=== PATIENT | female | born 1930 | race Caucasian/White ===

== ENCOUNTER 2019-09-14 04:15 | Inpatient (IN) ==
--- NOTE | 2019-09-14 04:39 | Emergency Department Note ---
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 No other significant injuries. No loss of consciousness. She denies rib pain. Denies chest pain or shortness of breath. The. She called her family at 10 PM, but then they did not respond to about 2 this morning. She comes in by private vehicle. Was able to bear weight only slightly, is complaining mostly of right hip pain. History of myeloid leukemia, apparently in remission, she lives by herself. Denies smoking or alcohol use. Fell onto the concrete, landing on the right side MD complaint: hip injury - Related Data Home Medications Medication Instructions Recorded Confirmed cholecalciferol (vitamin D3) 25 1,000 unit PO QDAY cap 02/08/15 09/14/19 mcg (1,000 unit) capsule hydralazine 10 mg tablet 10 mg PO BID tab 04/14/19 09/14/19 Aspirin [Adult Low Dose Aspirin EC] 81 mg PO DAILY 09/14/19 09/14/19 Vit A,C & E/Lutein/Minerals 1 tab PO DAILY 09/14/19 09/14/19 [Ocuvite] Previous Rx's Medication Instructions Recorded furosemide 40 mg tablet 40 mg PO QDAY #1 tab 10/30/17 metoprolol succinate 100 mg 100 mg PO BID #60 tab 01/30/18 tablet,extended release 24 hr omeprazole 20 mg capsule,delayed 20 mg PO QDAY #90 cap 08/13/19 release enalapril maleate 10 mg tablet 10 mg PO QDAY 90 Days #90 tab 08/20/19 atorvastatin 10 mg tablet 10 mg PO QPM 90 Days #90 tab 08/30/19 Allergies Allergy/AdvReac Type Severity Reaction Status Date / Time No Known Drug Allergies Allergy Verified 08/12/19 07:54 Review of Systems All systems ED: reviewed and negative except as stated. Constitutional: Denies: fever, chills ENT ED: Denies: throat pain Cardiovascular: Denies: chest pain, palpitations, dyspnea on exertion Respiratory: Denies: shortness of breath Past Medical History - Past Medical History PMFSH Narrative: Past Surgical History History of cataract surgery (Chronic) History of appendectomy (Chronic) Cardiac Assessment/History Capillary Refill < 3 Seconds Respiratory Assessment/History Respiratory Pattern/Effort Normal Breath Sounds Clear,Throughout All Garcia HEENT Assessment/History Pupil Reaction Brisk Pupil Size 2 Pupil [place] PERRL Gastrointestinal Assessment/History Abdomen Description Soft,Non-Tender Skin Assessment/History Skin Color/Temp Warm,Dry,[place] Neuro Assessment/History Alert and Oriented Yes Muscle Strength (Extremity) Normal for Patient All Active Problems (Last Updated 08/05/18 @ 07:27 by Khari Ballard PA-C) Insomnia (Chronic) Atrial fibrillation (Chronic) Vitamin D deficiency (Chronic) History of cataract surgery (Chronic) History of appendectomy (Chronic) Osteoporosis (Chronic) 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) Macular degeneration (Chronic) Chronic kidney disease (Chronic) Hypertension, essential (Chronic) Hyperlipidemia (Chronic) Gastroesophageal reflux (Chronic) Source: nursing notes reviewed Medical history: Reports: atrial fibrillation, GERD, other (history of myeloid leukemia) Surgical history ED: Reports: non-contributory Family history: Reports: no significant family history - Social History smoking status: Never smoker Alcohol use: Reports: None Drug use: Reports: none Physical Exam Limitations: no limitations General appearance: alert, in no apparent distress Head: atraumatic, normocephalic, normal inspection Eye: Present: normal appearance, PERRL, EOMI, visual garcia intact ENT: Present: normal exam, normal oropharynx, mucous membranes moist, TM's normal bilaterally Neck: Present: normal inspection, full ROM, trachea midline. Absent: tenderness, meningismus Chest: Present: normal inspection, symmetric chest wall rise Respiratory: Present: normal lung sounds bilaterally. Absent: respiratory distress, rales/crackles Cardiovascular: Present: regular rate, normal rhythm Abdominal: Present: soft. Absent: distention, tenderness Extremities: Present: other (tender of the right trochanter, leg, not shortened cannot externally rotated). Absent: full ROM, pedal edema, pretibial edema, joint swelling, calf tenderness Back: Present: normal inspection. Absent: CVA tenderness (R), CVA tenderness (L), vertebral tenderness Neurological: Present: alert, oriented X3, CN II-XII intact, reflexes normal. Absent: motor sensory deficit Psychiatric: Present: normal affect Skin: Present: warm, dry, normal color Course - Reevaluation(s) Reevaluation #1: X-ray showing what was suspicious of a right sided femoral neck fracture. Somewhat impacted so a little bit difficult to tell and thus a CT scan was done and this showed definitely a fracture which was impacted in the femoral neck. I spoke with Dr. Ayala who stated that he had a few cases this morning but then he would be over later in the morning to look at her. He preferred to have the hospitalist admit the patient. She does have atrial fibrillation, ST segment depression which is new but she is not complaining of any chest pain and her troponin was negative. She is on aspirin only for blood thinner. A little bit hypertensive in the department, however she has not taken any of her morning medications. Discussed hospital admission with Dr. Ayala who would be happy to consult on the patient and recommended hospital admission by Dr. Moeller. Discussed with Dr. Moeller. Dr. Ayala will be in after seeing 2cases at [place]., I.e. later this morning Vital Signs Temperature 97.1 F 09/14/19 04:17 Pulse Rate 90 09/14/19 04:17 Respiratory Rate 16 09/14/19 04:17 Blood Pressure 182/93 09/14/19 04:17 Pulse Oximetry (%) 97 09/14/19 04:17 Temperature 97.1 F 09/14/19 04:17 Pulse Rate 88 09/14/19 08:00 Respiratory Rate 21 09/14/19 08:00 Blood Pressure 141/79 09/14/19 08:00 Pulse Oximetry (%) 97 09/14/19 08:00 Extremity Injury, Lower - MDM Narrative Medical decision making narrative: Final diagnosis is right-sided femoral neck fracture, minimally displaced, mildly impacted - Lab Data Lab results reviewed: Yes I reviewed the patient's lab results. Result diagrams: 09/14/19 05:05 09/14/19 05:05 Lab Results 09/14/19 09/14/19 09/14/19 Range/Units 05:05 05:05 05:12 WBC 8.0 (4.50-11.00) K/mcL RBC 3.72 (3.59-5.38) M/mcL Hgb 11.4 (11.2-15.7) g/dL Hct 33.3 L (34.1-44.9) % MCV 89.5 (80.0-100.0) fL MCH 30.6 (26.0-34.0) pg MCHC 34.2 (31.0-36.0) g/dL RDW 14.0 (11.5-14.5) % Plt Count 183 (140-440) K/mcL MPV 9.5 (7.4-10.4) fL Total Counted 100 Seg Neutrophils % 82 H (38-78) % Band Neutrophils % 1 (0-10) % Lymphocytes % 10 L (15-49) % Monocytes % (Manual) 6 (1-12) % Eosinophils % (Manual) 1 (0-7) % Platelet Estimate Normal (NORMAL) RBC Morphology Normal (NORMAL) ESR 29 H (0-20) mm/hr Sodium 137 (133-145) mmol/L Potassium 3.6 (3.3-5.1) mmol/L Chloride 100 (96-108) mmol/L Carbon Dioxide 21 L (22-30) mmol/L Anion Gap 16.0 (8-16) BUN 23 (8-23) mg/dl Creatinine 1.1 (0.6-1.1) mg/dl GFR Calculation 45 Glucose 169 H (70-105) mg/dL Calcium 9.5 (8.6-10.4) mg/dl Total Bilirubin 1.0 (0.0-1.0) mg/dL AST 33 (0-37) U/l ALT 21 (0-40) U/l Alkaline Phosphatase 106 (39-117) U/L Troponin T < 0.01 (0-0.03) ng/ml Total Protein 6.8 (5.9-8.4) gm/dL Albumin 3.8 (3.2-5.2) gm/dL Globulin 3.0 (2.2-3.7) gm/dL Albumin/Globulin Ratio 1.3 (1.0-2.3) - Radiology Data Radiology results reviewed: Yes I reviewed the patient's radiology results. Disposition Pt seen by HEALTHCARE TECHNICIAN/PA only: No Clinical Impression: Fracture of hip Disposition: Xfer As Outpt/Obs ([facility]) Condition: Good Referrals: Khari Ballard PA-C [Primary Care Provider] -
[2019-09-14] MEDS ORDERED: RACEPINEPHRINE 0.5 ML AMPUL.NEB ONE (04:48)
--- NOTE | 2019-09-14 05:38 | XRay Report ---
CLINICAL INFORMATION: fall COMPARISON: 08/12/2019 FINDINGS: Moderate cardiomegaly is unchanged. Mediastinum and pulmonary vessels are normal. The lungs are clear. No effusions. Bones and soft tissues normal IMPRESSION: Moderate stable cardiomegaly - no acute cardiopulmonary disease or posttraumatic change Interpreted and Authenticated by: Abdulaziz Mejia 09/14/19
[2019-09-14 05:46] LABS: Hematocrit 33.3 % (34.1-44.9); Hemoglobin 11.4 g/dL (11.2-15.7); Mean Cell Volume 89.5 fL (80.0-100.0); Mean Corpuscular HGB Conc 34.2 g/dL (31.0-36.0); Mean Platelet Volume 9.5 fL (7.4-10.4); Platelet Count 183 K/mcL (140-440); RBC 3.72 M/mcL (3.59-5.38)
--- NOTE | 2019-09-14 05:50 | Cat Scan Report ---
CLINICAL INFORMATION: Trauma COMPARISON: None. TECHNIQUE: 0.625 mm helical slices were obtained from the mid L4 through the subtrochanteric regions. Following reconstruction, 2.5 mm sagittal, coronal and axial reformations were processed. The exam was reviewed in bone and soft tissue windows. The exam was performed using radiation dose optimization techniques including, but not limited to, automated exposure control, adjustment of mA and/or kV according to patient size and use of iterative reconstruction technique. FINDINGS: Bone windows show an acute, mildly impacted subcapital fracture of the right hip. The femoral neck is displaced less than 5 mm anteriorly. Minimal degenerative change seen in both SI and hip joints. 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 At L4-5 moderate broad disc protrusion results in mild central canal and moderate left IV foraminal narrowing. The multiple diverticuli within the sigmoid colon. The visualized small and large bowel are, otherwise, normal. Urinary bladder is unremarkable. Uterus is anteflexed and normal size: 5.5 x 2 cm. IMPRESSION: 1. Acute mildly impacted, minimally displaced subcapital fracture - right hip. 2. 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 3. Sigmoid diverticulosis Interpreted and Authenticated by: Abdulaziz Mejia 09/14/19
--- NOTE | 2019-09-14 05:51 | XRay Report ---
CLINICAL INFORMATION: fall COMPARISON: None. FINDINGS: The right femoral neck is foreshortened - suspect subcapital fracture. No other osseous abnormality. There is mild degenerative change in both SI and hip joints. Soft tissues normal IMPRESSION: Probable subcapital fracture right hip - follow-up CT will be performed Interpreted and Authenticated by: Abdulaziz Mejia 09/14/19
[2019-09-14 06:09] LABS: ALT/SGPT 21 U/l (0-40); AST/SGOT 33 U/l (0-37); Albumin 3.8 gm/dL (3.2-5.2); Albumin/Globulin Ratio 1.3 (1.0-2.3); Alkaline Phosphatase 106 U/L (39-117); Blood Urea Nitrogen 23 mg/dl (8-23); Calcium 9.5 mg/dl (8.6-10.4); Carbon Dioxide 21 mmol/L (22-30); Chloride 100 mmol/L (96-108); Glomerular Filtration Rate 45; Glucose 169 mg/dL (70-105)
[2019-09-14 06:27] LABS: Band Neutrophils % 1 % (0-10); Eosinophils % (Manual) 1 % (0-7); Lymphocytes % 10 % (15-49); Monocytes % (Manual) 6 % (1-12); Platelet Estimate NORMAL (NORMAL); RBC Morphology NORMAL (NORMAL); Segmented Neutrophils % 82 % (38-78)
[2019-09-14 06:44] LABS: Erythrocyte Sedimentation Rate 29 mm/hr (0-20)
[2019-09-14] MEDS ORDERED: CARVEDILOL 3.125 MG TABLET PO ONE (06:48)
[2019-09-14] MEDS ORDERED: LACTATED RINGERS 1,000 ML IV SCH ×2 (07:00→20:15)
[2019-09-14] MEDS ORDERED: OMEPRAZOLE 20 MG CAPSULE PO SCH (07:30)
[2019-09-14 08:17] LABS: Appearance,Urine CLEAR; Bacteria,Urine 0 /hpf (0); Bilirubin,Urine NEG (NEG); Color,Urine YELLOW; Culture Indicated,Urine NO; Glucose,Urine (UA) NEGATIVE (NEG); Ketones,Urine NEG (NEG); Leukocyte Esterase,Urine NEG /uL (NEG); Mucus,Urine FEW /hpf (0); Nitrate,Urine NEG (NEG); Protein,Urine 100 mg/dL (NEG); Specific Gravity,Urine 1.017 (1.000-1.035); Urine Blood NEG mg/dL (<0.03); Urine Hyaline Cast 3 /lpf (0-2); Urine RBC 1 /hpf (0-1); Urine Squamous Epithelial Cell < 1 /hpf (0-4); Urine WBC 2 /hpf (0-4)
[2019-09-14] MEDS ORDERED: METOPROLOL SUCCINATE 50 MG TAB.XL.24H PO SCH (09:00)
[2019-09-14] MEDS ORDERED: VITAMIN D3 1,000 UNIT TABLET PO SCH (09:00)
[2019-09-14] MEDS ORDERED: hydrALAZINE 10 MG TABLET PO SCH (09:00)
[2019-09-14] MEDS ORDERED: VIT A,C & E/LUTEIN/MINERALS TABLET PO SCH (09:00)
[2019-09-14] MEDS ORDERED: LISINOPRIL 10 MG TABLET PO SCH (09:00)
--- NOTE | 2019-09-14 09:43 | XRay Report ---
CLINICAL INFORMATION: right knee pain COMPARISON: None. FINDINGS: Mild patella doreen noted. There is mild patellofemoral and tibiofemoral degenerative change. No focal osseous abnormality. There is thickening and increased density of the proximal patellar tendon with possible displacement from the inferior patellar pole IMPRESSION: Mild patella doreen Mild patellofemoral and tibiofemoral degeneration Mild thickening of the proximal patellar tendon which could indicate edema or hemorrhage. Potential proximal patellar tendon rupture. Please correlate with function and pain in this area Interpreted and Authenticated by: Abdulaziz Mejia 09/14/19
[2019-09-14] MEDS ORDERED: MAGNESIUM HYDROXIDE 30 ML ORAL.SUSP PO PRN (11:13)
[2019-09-14] MEDS ORDERED: ONDANSETRON 4 MG/2 ML VIAL IV PRN ×2 (11:13)
[2019-09-14] MEDS ORDERED: ASPIRIN 81 MG TAB.CHEW CHEWED SCH (11:13)
[2019-09-14] MEDS ORDERED: HEPARIN 5,000 UNIT/ML VIAL SQ SCH (11:13)
[2019-09-14] MEDS ORDERED: DOCUSATE SODIUM 100 MG CAPSULE PO SCH (11:13)
[2019-09-14] MEDS ORDERED: ACETAMINOPHEN 325 MG TABLET PO PRN (11:13)
[2019-09-14] MEDS: LACTATED RINGERS 1,000 ML IV SCH ×2 (11:30→21:29)
[2019-09-14] MEDS ORDERED: hydrALAZINE 20 MG/ML VIAL IV PRN (11:41)
[2019-09-14 12:04] LABS: INR 0.9 (0.9-1.1)
[2019-09-14] MEDS: DOCUSATE SODIUM 100 MG CAPSULE PO SCH (12:39)
[2019-09-14] MEDS: FAMOTIDINE 20 MG TABLET PO SCH (12:40)
--- NOTE | 2019-09-14 13:38 | Internal Med History&Physical ---
Medical - H&P: HPI Patient information: Note initiated : 09/14/19 at 1:36 pm Service Date, if different from initiated Date: [] Patient: Macrina Braxton 88 y/o F admitted on 09/14/19 for fall ground level right hip pain. Chief Complaint: [] Chief complaint: Right hip pain History of present illness: Ms. Braxton is a 88 year old F was taking bottles of water from the garage into the house climbing the 5 stairs when she lost strength in her right leg and fell on her side. She had immediate pain. She called her family but they did not respond till 2 in the morning. She was brought in and found to have right hip fracture. Patient has history of atrial fibrillation but is not on anticoagula tion. She could not afford the Eliquis so just takes aspirin. She is not had a stroke before. Patient admits to dyspnea on exertion. It takes a few minutes to catch her breath again she lives independently and is accompanied by her [id number]. Gduvhg-sz-txj says patient has had decline in her physical ability in recent years. Patient has not had coronary artery disease or stroke. She denies chest pain at rest or with activity. Review of systems: General no fevers chills weight gain weight loss Cardiovascular she does have atrial fibrillation she is on rate control with metoprolol 100 mg twice a day. She is not sure if her heart races when she walks but she does get dyspneic at times. Respiratory no cough wheezing or shortness of breath at rest. GI no nausea vomiting diarrhea constipation negative Neuro no seizures strokes limb weakness Psych no depression psychosis or anxiety Hematologic no bleeding or bruising this order Malignancy history Medical - H&P: PMH Problems Reviewed: Yes Medical history: Atrial fibrillation CML in remission Hypertension Hyperlipidemia Denies diabetes Surgical history: Appendectomy in sixth grade Cataract surgery recent Pertinent family history: Multiple family members with cancer including 1 sister with lung cancer one with esophagus cancer 1 brother with kidney cancer 1 brother with myeloma Social history: 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 [employer] Wants DO NOT RESUSCITATE status and this confirmed in the presence of her si ster-in-law as well as her nephew Smoking status: Never smoker Have you smoked in the last 12 months: No Drug use: none Alcohol use: none Medical - H&P: Meds Home Medications Medication Instructions Recorded Confirmed Type cholecalciferol (vitamin D3) 25 1,000 unit PO QDAY cap 02/08/15 09/14/19 History mcg (1,000 unit) capsule furosemide 40 mg tablet 40 mg PO QDAY #1 tab 10/30/17 09/14/19 Rx metoprolol succinate 100 mg 100 mg PO BID #60 tab 01/30/18 09/14/19 Rx tablet,extended release 24 hr hydralazine 10 mg tablet 10 mg PO BID tab 04/14/19 09/14/19 History omeprazole 20 mg capsule,delayed 20 mg PO QDAY #90 cap 08/13/19 09/14/19 Rx release enalapril maleate 10 mg tablet 10 mg PO QDAY 90 Days #90 tab 08/20/19 09/14/19 Rx atorvastatin 10 mg tablet 10 mg PO QPM 90 Days #90 tab 08/30/19 09/14/19 Rx Aspirin [Adult Low Dose Aspirin EC] 81 mg PO DAILY 09/14/19 09/14/19 History Vit A,C & E/Lutein/Minerals 1 tab PO DAILY 09/14/19 09/14/19 History [Ocuvite] Allergies Allergy/AdvReac Type Severity Reaction Status Date / Time No Known Drug Allergies Allergy Verified 08/12/19 07:54 Medical - H&P: Exam - Constitutional Vitals: Temp Pulse Resp BP Pulse Ox 99.0 F 88 16 161/87 94 09/14/19 12:00 09/14/19 12:00 09/14/19 12:00 09/14/19 12:00 09/14/19 12:00 - Other Additional findings: General well-developed well-nourished female minimally overweight she is alert oriented pleasant Skin warm dry Mentation alert and oriented times person and place Neuro moves all extremities symmetrically but limited by pain in the right hip. She can flex and extend both ankles with good strength. Gross sensation intact in both feet. CV irregular rhythm rate controlled Lungs clear to auscultation bilaterally Abdomen positive bowel sounds soft nontender Calves no tenderness cords pedal edema Medical - H&P: Reslt - Labs CBC & Chem 7: 09/14/19 05:05 09/14/19 05:05 Labs: Short CBC 09/14/19 Range/Units 05:05 WBC 8.0 (4.50-11.00) K/mcL Hgb 11.4 (11.2-15.7) g/dL Hct 33.3 L (34.1-44.9) % Plt Count 183 (140-440) K/mcL BMP 09/14/19 05:05 Sodium 137 Potassium 3.6 Chloride 100 Carbon Dioxide 21 L BUN 23 Creatinine 1.1 Glucose 169 H Calcium 9.5 Cardiac Enzymes 09/14/19 Range/Units 05:12 Troponin T < 0.01 (0-0.03) ng/ml Liver Function 09/14/19 Range/Units 05:05 Total Bilirubin 1.0 (0.0-1.0) mg/dL AST 33 (0-37) U/l ALT 21 (0-40) U/l Alkaline Phosphatase 106 (39-117) U/L Albumin 3.8 (3.2-5.2) gm/dL Urine 09/14/19 Range/Units 07:31 Urine Color Yellow Urine Appearance Clear Urine pH 6.0 (5.0-9.0) Ur Specific [place]agan 1.017 (1.000-1.035) Urine Protein 100 A (NEG) mg/dL Urine Glucose (UA) Negative (NEG) mg/dL - EKG Data -: EKG Interpreted by Myself (Atrial fibrillation with controlled ventricular response at 80 there is an) - Impressions Atrial fibrillation with controlled ventricular response at 88. There is border line LVH and anterolateral T wave inversion cannot exclude ischemia. Medical - H&P: A/P (1) Fracture of hip Problem details: Patient with right side subcapital fracture and intended hemiarthroplasty by Dr. Ayala Current visit: Yes Status: Acute Awaiting repeat echocardiogram due to abnormal EKG and past abnormal echo (2) Atrial fibrillation Problem details: Rate is well controlled. I think the EKG changes may be related to the atrial fibrillation but is safest to evaluate the echo. Troponin was negative patient denies syncope Current visit: No Status: Chronic We will add low-dose diltiazem for rate control. (3) Chronic myeloid leukemia in remission Problem details: Stable Current visit: No Status: Chronic (4) Hypertension, essential Problem details: Blood pressure mildly elevated. Heart rate 88 at rest. We will look for uncontrolled activity rapid ventricular response as a cause of her dyspnea. 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 Recheck with hydration Medical - H&P: Qual - Stroke Symptom Onset Unknown: No - VTE Deep Vein Thrombosis/Pulmonary Embolism Present on Admission: No
[2019-09-14] MEDS: 0.9 % SODIUM CHLORIDE 10 ML SYRINGE IV SCH ×2 (13:41→23:10)
[2019-09-14] MEDS ORDERED: 0.9 % SODIUM CHLORIDE 10 ML SYRINGE IV SCH (14:00)
--- NOTE | 2019-09-14 14:05 | Internal Med Progress Note ---
Medical - PN: Subj Patient information: Note initiated : 09/14/19 at 1:59 pm Service Date, if different from initiated Date: [] Patient: Macrina Braxton a 88 y/o F admitted on 09/14/19 for fall ground level right hip pain. Chief Complaint: [] Interval history: Ms. Braxton is a 88 year old F was taking bottles of water from the garage into the house climbing the 5 stairs when she lost strength in her right leg and fell on her side. She had immediate pain. She called her family but they did not respond till 2 in the morning. She was brought in and found to have right hip fracture. Patient has history of atrial fibrillation but is not on anticoagulation. She could not afford the Eliquis so just takes aspirin. She is not had a stroke before. Patient admits to dyspnea on exertion. It takes a few minutes to catch her breath again she lives independently and is accompanied by her kqxqoo-wn-[id number]. Cqhwcx-ll-kuk says patient has had decline in her physical ability in recent years. Patient has not had coronary artery disease or stroke. She denies chest pain at rest or with activity. 09/15 - Constitutional Vitals: Vital Signs Temp Pulse Resp BP Pulse Ox 99.0 F 88 16 161/87 94 09/14/19 12:00 09/14/19 12:00 09/14/19 12:00 09/14/19 12:00 09/14/19 12:00 Period Temp Pulse Resp BP Sys/Trent Pulse Ox Last 24 Hr 97.1 F-99.0 F 76-110 12-24 139-182/72-103 92-98 Intake and Output 09/13/19 09/14/19 09/14/19 21:59 05:59 13:59 Intake Total 402 Balance 402 Weight 63.503 kg 62.278 kg Patient Weight 09/15/19 05:59 Weight 62.278 kg Intake & Output: Intake & Output 09/13/19 09/14/19 09/14/19 21:59 05:59 13:59 Intake Total 402 Balance 402 Weight 63.503 kg 62.278 kg Intake: IV 402 Lactated Ringers 1,000 ml @ 125 402 mls/hr IV .Q8H [facility] Rx#: [id number] Other: Urine Appearance Clear Uretheral ([place]) Clear Urine Color Bright Yellow Uretheral ([place]) Bright Yellow Urine Odor Normal Uretheral ([place]) Normal Exam: General: Alert, Awake, No acute Distress Eyes/N/T: EOMI, Head/Neck: neck supple, CV: irreg irreg, No murmurs Pulm: Clear b/l, no wheezing/rhonchi/rales Abd: soft, nontender, +BS x4 Ext: no clubbing/cyanosis/edema Neuro: Alert, no focal deficits, moves all extremities, Skin: warm/dry Medical - PN: Obj Da - Labs CBC & Chem 7: 09/14/19 05:05 09/14/19 05:05 Labs: Abnormal Lab Results 09/14/19 09/14/19 09/14/19 07:31 05:05 05:05 Hct 33.3 L Seg Neutrophils % 82 H Lymphocytes % 10 L ESR 29 H Carbon Dioxide 21 L Glucose 169 H Urine Protein 100 A Urine Urobilinogen 2.0 A Hyaline Casts 3 H Meds: Medications Acetaminophen (Tylenol) 650 mg PO Q6HP PRN; Protocol PRN Reason: Per Pain Protocol/Fever > 101 Aspirin (Aspirin) 81 mg CHEWED DAILY [facility] Last Admin: 09/14/19 12:40 Dose: Not Given Documented by: Atorvastatin Calcium (Lipitor) 10 mg PO HS [facility] Diltiazem HCl (Cardizem) 30 mg PO Q8 [facility] Docusate Sodium (Colace) 100 mg PO BID [facility] Last Admin: 09/14/19 12:39 Dose: Not Given Documented by: Famotidine (Pepcid) 20 mg PO BID [facility] Last Admin: 09/14/19 12:40 Dose: Not Given Documented by: Heparin Sodium (Porcine) (Heparin) 5,000 unit SQ Q12 [facility] Last Admin: 09/14/19 12:39 Dose: Not Given Documented by: Hydralazine HCl (Apresoline) 10 mg PO BID [facility] Hydralazine HCl (Apresoline) 10 mg IV Q4-6HP PRN PRN Reason: Hypertension Lactated Ringer's (Lactated Ringers) 1,000 mls @ 125 mls/hr IV .Q8H [facility] Last Admin: 09/14/19 11:30 Dose: 125 mls/hr Documented by: Lisinopril (Zestril) 10 mg PO DAILY [facility] Magnesium Hydroxide (Milk Of Magnesia) 30 ml PO DAILYP PRN PRN Reason: Constipation Metoprolol Succinate (Toprol Xl) 100 mg PO BID [facility] Morphine Sulfate (Morphine) 4 mg IV Q4HP PRN; Protocol PRN Reason: Per Pain Protocol Multivitamins/Minerals (Ocuvite) 1 tab PO DAILY [facility] Omeprazole (Prilosec) 20 mg PO ACB [facility] Ondansetron HCl (Zofran) 4 mg IV Q6HP PRN PRN Reason: Nausea And Vomiting Oxycodone HCl (Roxicodone) 5 mg PO Q4HP PRN; Protocol PRN Reason: Per Pain Protocol Senna (Senokot) 2 tab PO HS [facility] Sodium Chloride (Saline Flush) 10 ml IV Q8 [facility] Last Admin: 09/14/19 13:41 Dose: Not Given Documented by: Vitamin D (Vitamin D3) 1,000 unit PO DAILY [facility] Medical - PN: A/P - Time Spent With Patient Total time spent is greater than 50% in coordination of care (as documented) at patient's floor/unit and/or counseling patient: - Narrative A/P Narrative: Assessment: *Right Hip Fx: *AFib: only on ASA as has refused anticoagulation due to cost *CML in remission: follows with Dr. Kirk *HTN: home med hydralazine/toprol/enalapril *CKD III: * Plan: -Dr. Ayala for Ortho -echo pending -We will add low-dose diltiazem for rate control, 30mg q8 -cont home hydralazine/BB, restart home ACEI likely in AM -pt/ot - -ppx: post-op per Ortho/pepcid DNR Medical - PN: Qual - Stroke Symptom Onset Unknown: No - VTE Deep Vein Thrombosis/Pulmonary Embolism Present on Admission: No
[2019-09-14] MEDS ORDERED: ceFAZolin 2 GM in DEXTROSE 5% IN WATER 50 ML IV SCH (14:15)
[2019-09-14] MEDS: DILTIAZEM 30 MG TABLET PO SCH (15:17)
--- NOTE | 2019-09-14 15:18 | Consultation ---
DATE OF CONSULTATION: 09/14/2019 REASON FOR CONSULTATION: Right hip fracture. Consulted by ER provider [facility] HISTORY OF PRESENT ILLNESS: The patient is an 88-year-old female who fell yesterday evening while taking some bottles of water from the garbage, navigating five steps, and resulting in a fall onto her right side. She was unable to bear weight at that time, and she crawled back in the house where this morning her family or friends arrived and subsequently brought her to the emergency department for right hip pain. She was found to have a right hip fracture. She was admitted by the hospitalist service and subsequently Orthopedics was consulted. On presentation, she is complaining of right hip pain. No other complaints of bilateral upper extremities or left lower extremity. PAST MEDICAL HISTORY: Atrial fibrillation, CML that is in remission, hypertension, hyperlipidemia, questionable diabetes. PAST SURGICAL HISTORY: Appendectomy and cataract surgery. ALLERGIES: No known drug allergies. MEDICATIONS: 1. Vitamin D. 2. Furosemide. 3. Metoprolol. 4. Hydralazine. 5. Omeprazole. 6. Atorvastatin. 7. Aspirin. 8. Vitamins. REVIEW OF SYSTEMS: She does endorse some dyspnea on exertion. Also per family, she has become weaker and questionable dementia. They do help her with most everything at home. Otherwise, 10-point review of systems is negative. SOCIAL HISTORY: She resides by herself, which her jostdthf-ma-fdl and son-in-law do help care for her. PHYSICAL EXAMINATION: VITAL SIGNS: The patient is afebrile with a heart rate 83, blood pressure 152/72, pulse ox 96% on room air. GENERAL: She is alert, oriented, interactive, conversant, and appropriate. Not in acute distress. EXTREMITIES: Bilateral upper extremities are atraumatic. She has full active motion without any tenderness with palpation. Her pelvis is stable. Left lower extremity had no pain with log roll of her hip. No tenderness to palpation of the entire extremity. No joint effusion throughout the knee or ankle. Her foot is warm and well perfused with ability to plantarflex and dorsiflex her ankle and wiggle all digits. Sensation is intact. Right lower extremity range of motion about the hip deferred given known fracture. She has no knee joint effusion. No tenderness to palpation about the knee, leg, ankle or foot. Sensation intact throughout the foot as well as able to dorsiflex, plantarflex and flex and extend all digits. 11 and 33. Her platelet count is 183. Her INR is 0.9. Chemistry is glucose of 169, creatinine is 1.1. Urine is negative for leukocyte esterase. IMAGING: She has plain x-rays as well as CT demonstrating a displaced femoral neck fracture. ASSESSMENT AND PLAN: The patient is an 88-year-old female with several medical comorbidities with a right displaced femoral neck fracture. I discussed this with her and her caretakers today. My recommendation will be for hip hemiarthroplasty. I think there is a high risk of AVM and/or nonunion of the femoral neck with cannulated screw fixation of this fracture. I discussed the procedure itself, as well as the risks associated with these and postoperative course and restrictions. She does understand. She understands that hip fractures in her age population does carry a significant morbidity and mortality associated with it, and she may never ambulate independently outside of a walker or a cane-type device in the future. She does understand and she wants to proceed in this fashion. She is obtaining an echo with results pending prior to proceeding with surgery. SHANTANU:cesar Job ID: [id number] Doc ID: [id number] Brian CARTER
[2019-09-14] MEDS ORDERED: fentaNYL 250 MCG/5 ML VIAL IV ONE (17:45)
[2019-09-14] MEDS ORDERED: LIDOCAINE HCL/PF 100 MG/5 ML SYRINGE IV ONE (17:45)
[2019-09-14] MEDS ORDERED: DEXAMETHASONE 10 MG/ML VIAL IV ONE (17:45)
[2019-09-14] MEDS ORDERED: PROPOFOL 200 MG/20 ML VIAL IV ONE (17:45)
[2019-09-14] MEDS ORDERED: KETAMINE 100 MG/ML ML IV ONE (17:45)
[2019-09-14] MEDS ORDERED: TRANEXAMIC ACID 1,000 MG/10 ML VIAL IV ONE (17:45)
[2019-09-14] MEDS ORDERED: PHENYLEPHRINE 10 MG/ML VIAL IV ONE (17:45)
[2019-09-14] MEDS ORDERED: VANCOMYCIN 1,000 MG in 0.9 % SODIUM CHLORIDE 250 ML IV ONE (19:36)
--- NOTE | 2019-09-14 19:47 | Brief Operative Note ---
Date of procedure: 09/14/19 Pre-op diagnosis: right displaced hip fracture Post-op diagnosis: same Procedure: right cemented hip unique arthroplasty Grafts/Implants: Yes (cemented depuy size 3 with -3 46mm headball) Anesthesia: GETA Findings: displaced femoral neck fracture with split down to lesser Complications: none Surgeon: Brian Ayala Accounting Manager Cpa: Sergio Wen Estimated blood loss (cc): 200 Tourniquet Time (Minutes): 0 Specimens Removed/Pathology: none sent Condition: stable Disposition: PACU
[2019-09-14] MEDS ORDERED: METHOCARBAMOL 1,000 MG/10 ML VIAL IV PRN ×2 (19:53→20:13)
[2019-09-14] MEDS ORDERED: BENZOCAINE/MENTHOL 1 LOZENGE PO PRN ×2 (19:53→20:13)
[2019-09-14] MEDS ORDERED: FLUMAZENIL 0.1 MG/ML ML IV PRN (20:13)
[2019-09-14] MEDS ORDERED: fentaNYL 100 MCG/2 ML VIAL IV PRN (20:13)
[2019-09-14] MEDS ORDERED: NALOXONE HCL 0.4 MG/ML VIAL IV PRN (20:13)
[2019-09-14] MEDS ORDERED: IPRATROPIUM/ALBUTEROL 3 ML AMPUL.NEB NEB PRN (20:13)
[2019-09-14] MEDS ORDERED: LACTATED RINGERS 250 ML IV PRN (20:13)
[2019-09-14] MEDS ORDERED: ACETAMINOPHEN 1,000 MG/100 ML BOTTLE IV ONE (20:13)
[2019-09-14] MEDS ORDERED: diphenhydrAMINE 50 MG/ML VIAL IV ONE (20:57)
[2019-09-14] MEDS ORDERED: ONDANSETRON 4 MG/2 ML VIAL IV ONE (20:57)
[2019-09-14] MEDS ORDERED: ONDANSETRON 4 MG/2 ML VIAL ONE (20:58)
[2019-09-14] MEDS ORDERED: ATORVASTATIN 20 MG TABLET PO SCH (21:00)
[2019-09-14] MEDS ORDERED: SENNOSIDES 1 TABLET PO SCH (21:00)
[2019-09-14] MEDS: ACETAMINOPHEN 1,000 MG/100 ML BOTTLE IV SCH ×2 (21:15→21:16)
[2019-09-14] MEDS ORDERED: VANCOMYCIN 1 GM VIAL TOPICAL SCH (23:00)
[2019-09-14] MEDS: ceFAZolin 1 GM VIAL IV SCH (23:10)
[2019-09-15] MEDS: SENNOSIDES 1 TABLET PO SCH ×2 (00:28→20:51)
[2019-09-15] MEDS: ATORVASTATIN 20 MG TABLET PO SCH ×2 (00:28→20:51)
[2019-09-15] MEDS: DOCUSATE SODIUM 100 MG CAPSULE PO SCH ×3 (00:29→20:51)
[2019-09-15] MEDS: FAMOTIDINE 20 MG TABLET PO SCH ×2 (00:29→08:32)
[2019-09-15] MEDS: DILTIAZEM 30 MG TABLET PO SCH ×2 (01:01→05:37)
[2019-09-15] MEDS: hydrALAZINE 10 MG TABLET PO SCH ×3 (01:01→20:51)
[2019-09-15] MEDS: METOPROLOL SUCCINATE 50 MG TAB.XL.24H PO SCH ×3 (01:05→20:51)
--- NOTE | 2019-09-15 04:07 | XRay Report ---
CLINICAL INFORMATION: s/p right hip unique arthroplasty COMPARISON: Preoperative pelvic CT 09/14/2019 FINDINGS: Right hip hemiarthroplasty with cerclage wire buttressing a intertrochanteric fracture shows anatomic alignment. Mild degenerative change seen in both SI joints. The left hip is unremarkable. Soft tissue swelling and surgical site seen - as expected IMPRESSION: Right hemiarthroplasty changes - anatomic alignment Interpreted and Authenticated by: Abdulaziz Mejia 09/15/19
[2019-09-15] MEDS: ACETAMINOPHEN 1,000 MG/100 ML BOTTLE IV SCH ×3 (04:10→20:24)
[2019-09-15] MEDS: LACTATED RINGERS 1,000 ML IV SCH (04:53)
[2019-09-15] MEDS: ceFAZolin 1 GM VIAL IV SCH (05:37)
[2019-09-15] MEDS: 0.9 % SODIUM CHLORIDE 10 ML SYRINGE IV SCH ×3 (07:10→20:15)
--- NOTE | 2019-09-15 07:14 | Orthopedic Progress Note ---
Subjective Patient information: Note initiated : 09/15/19 at 7:11 am Service Date, if different from initiated Date: [] Patient: Macrina Braxton 88 y/o F admitted on 09/14/19 for fall ground level right hip pain. She is POD # 1 s/p right unique hip arthroplasty with Dr. Ayala. Denies SOB, CP, N/V, fevers/chills. Admits to pain in the right hip. States her pain is managed. Chief Complaint: right hip pain. Pertinent ROS: negative except per HPI. Objective Vital signs: Vital Signs Temp Pulse Pulse Resp BP BP BP 09/15/19 04:10 96.9 F L 74 14 136/76 09/15/19 00:11 97.0 F 80 12 112/77 09/14/19 23:11 74 12 127/75 09/14/19 22:41 70 115/68 09/14/19 22:11 74 122/72 09/14/19 21:56 82 142/83 09/14/19 21:41 81 130/82 09/14/19 21:26 88 135/90 09/14/19 21:11 96.7 F L 89 16 135/78 09/14/19 21:05 98.0 F 83 16 124/73 09/14/19 21:00 99 H 15 149/81 09/14/19 20:50 98.1 F 79 12 129/77 09/14/19 20:45 80 18 129/73 09/14/19 20:40 77 17 121/78 09/14/19 20:35 78 14 130/62 09/14/19 20:30 77 15 132/69 09/14/19 20:25 98.0 F 78 10 L 122/83 09/14/19 20:20 98.3 F 69 10 L 104/55 09/14/19 20:16 81 12 100/53 09/14/19 20:10 72 11 L 85/45 09/14/19 20:07 97.8 F 73 18 80/55 09/14/19 15:00 178/91 09/14/19 12:00 99.0 F 88 16 161/87 09/14/19 10:27 99.0 F 88 16 161/87 09/14/19 10:00 86 12 152/72 09/14/19 09:30 85 13 142/73 09/14/19 09:00 82 21 153/83 09/14/19 08:30 87 19 139/74 09/14/19 08:00 88 21 141/79 09/14/19 07:31 95 H 19 171/93 Pulse Ox 09/15/19 04:10 97 09/15/19 00:11 99 09/14/19 23:11 98 09/14/19 22:41 96 09/14/19 22:11 95 09/14/19 21:56 96 09/14/19 21:41 96 09/14/19 21:26 97 09/14/19 21:11 92 09/14/19 21:05 93 09/14/19 21:00 92 09/14/19 20:50 95 09/14/19 20:45 92 09/14/19 20:40 100 09/14/19 20:35 100 09/14/19 20:30 100 09/14/19 20:25 98 09/14/19 20:20 98 09/14/19 20:16 98 09/14/19 20:10 97 09/14/19 20:07 95 09/14/19 15:00 09/14/19 12:00 94 09/14/19 10:27 94 09/14/19 10:00 96 09/14/19 09:30 95 09/14/19 09:00 96 09/14/19 08:30 94 09/14/19 08:00 97 09/14/19 07:31 98 Intake and Output 09/14/19 09/15/19 09/15/19 21:59 05:59 13:59 Intake Total 3000 1225 Output Total 300 300 Balance 2700 925 Intake: IV 1100 1025 Lactated Ringers 1,000 ml @ 125 1000 925 mls/hr IV .Q8H [facility] Rx#: [id number] Oral 200 IV - Manual Only 1900 Output: Urine Catheter Amount 100 300 Estimated Blood Loss 200 Other: Urine Appearance Clear Clear Urine Color Bright Yellow Dark Yellow Uretheral ([place]) Dark Yellow Urine Odor Strong Weight 134 lb 12.8 oz Intake & Output: Intake & Output 09/14/19 09/15/19 09/15/19 21:59 05:59 13:59 Intake Total 3000 1225 Output Total 300 300 Balance 2700 925 Weight 134 lb 12.8 oz Intake: IV 1100 1025 Lactated Ringers 1,000 ml @ 125 1000 925 mls/hr IV .Q8H [facility] Rx#: [id number] Oral 200 IV - Manual Only 1900 Output: Urine Catheter Amount 100 300 Estimated Blood Loss 200 Other: Urine Appearance Clear Clear Urine Color Bright Yellow Dark Yellow Uretheral ([place]) Dark Yellow Urine Odor Strong Incision: No draining Dressing: Yes clean, Yes dry, Yes intact Weight bearing status: as tolerated (posterior hip precautions.) Neurological exam IM: Yes alert, Yes oriented X3, Yes neurovascular intact Extremities exam IM: No calf tenderness, Yes normal capillary refill, Yes normal inspection, No Gary's sign, Yes Foot pink and warm, Yes neurovascular intact - Labs CBC & BMP: 09/15/19 05:45 09/15/19 05:45 Labs: Orthopedic Labs 09/14/19 05:05 PT 13.0 INR 0.9 09/15/19 09/14/19 05:45 05:05 Hgb Pending 11.4 Hct Pending 33.3 L Assessment and Plan - Narrative A/P Narrative: Pt is an 88 yo female POD #1 s/p right unique hip arthroplasty. --Dressing change to silver dressing tmrw --PT/OT: WBAT, posterior hip precautions --continue diet --continue pain medications --prophy: Tyler Dudley, IS. --dispo: pt will need rehab.
[2019-09-15 07:37] LABS: Basophils # (Auto) 0.02 K/mcL (0.00-0.30); Basophils % (Auto) 0.4 % (0.0-2.0); Eosinophils # (Auto) 0.16 K/mcL (0.00-0.70); Eosinophils % (Auto) 2.9 % (0.0-7.0); Granulocytes % (Auto) 81.7 % (38.0-78.0); Hematocrit 29.4 % (34.1-44.9); Hemoglobin 9.7 g/dL (11.2-15.7); Lymphocytes # (Auto) 0.55 K/mcL (1.50-4.80); Lymphocytes % (Auto) 9.8 % (15.5-49.0); Mean Cell Volume 91.3 fL (80.0-100.0); Mean Platelet Volume 10.1 fL (7.4-10.4); Monocytes # (Auto) 0.29 K/mcL (0.10-0.90); Monocytes % (Auto) 5.2 % (1.0-12.0); Platelet Count 141 K/mcL (140-440); RBC 3.22 M/mcL (3.59-5.38); Red Cell Distribution Width 14.1 % (11.5-14.5); WBC 5.6 K/mcL (4.50-11.00)
[2019-09-15 07:44] LABS: ALT/SGPT 14 U/l (0-40); AST/SGOT 27 U/l (0-37); Albumin 3.2 gm/dL (3.2-5.2); Albumin/Globulin Ratio 1.3 (1.0-2.3); Alkaline Phosphatase 81 U/L (39-117); Bilirubin,Total 0.6 mg/dL (0.0-1.0); Blood Urea Nitrogen 21 mg/dl (8-23); Calcium 8.7 mg/dl (8.6-10.4); Carbon Dioxide 22 mmol/L (22-30); Chloride 98 mmol/L (96-108); Globulin 2.4 gm/dL (2.2-3.7); Glomerular Filtration Rate 40; Glucose 135 mg/dL (70-105)
--- NOTE | 2019-09-15 07:48 | Internal Med Progress Note ---
Medical - PN: Subj Patient information: Note initiated : 09/15/19 at 7:44 am Service Date, if different from initiated Date: [] Patient: Macrina Braxton a 88 y/o F admitted on 09/14/19 for fall ground level right hip pain. Chief Complaint: [] Interval history: Ms. Braxton is a 88 year old F was taking bottles of water from the garage into the house climbing the 5 stairs when she lost strength in her right leg and fell on her side. She had immediate pain. She called her family but they did not respond till 2 in the morning. She was brought in and found to have right hip fracture. Patient has history of atrial fibrillation but is not on anticoagulation. She could not afford the Eliquis so just takes aspirin. She is not had a stroke before. Patient admits to dyspnea on exertion. It takes a few minutes to catch her breath again she lives independently and is accompanied by her [id number]-[id number]. [id number] says patient has had decline in her physical ability in recent years. Patient has not had coronary artery disease or stroke. She denies chest pain at rest or with activity. 2/ Patient had ORIF yesterday of the right hip. Slept okay. No new complaints. No overnight events. Review of Systems: denies headache/fever/chills/nausea/vomiting/chest or abdominal pain/cough/dyspnea/diarrhea. Otherwise see above. - Constitutional Vitals: Vital Signs Temp Pulse Resp BP Pulse Ox 96.9 F L 74 14 136/76 97 09/15/19 04:10 09/15/19 04:10 09/15/19 04:10 09/15/19 04:10 09/15/19 04:10 Period Temp Pulse Resp BP Sys/Trent Pulse Ox Last 24 Hr 96.7 F-99.0 F 69-99 10-21 80-178/45-91 92-100 Intake and Output 09/14/19 09/15/19 09/15/19 21:59 05:59 13:59 Intake Total 3000 1225 Output Total 300 300 Balance 2700 925 Weight 61.144 kg Intake & Output: Intake & Output 09/14/19 09/15/19 09/15/19 21:59 05:59 13:59 Intake Total 3000 1225 Output Total 300 300 Balance 2700 925 Weight 61.144 kg Intake: IV 1100 1025 Lactated Ringers 1,000 ml @ 125 1000 925 mls/hr IV .Q8H [facility] Rx#: [id number] Oral 200 IV - Manual Only 1900 Output: Urine Catheter Amount 100 300 Estimated Blood Loss 200 Other: Urine Appearance Clear Clear Urine Color Bright Yellow Dark Yellow Uretheral ([place]) Dark Yellow Urine Odor Strong Exam: General: Alert, Awake, No acute Distress Eyes/N/T: EOMI, Head/Neck: neck supple, CV: irreg irreg, No murmurs Pulm: Clear b/l, no wheezing/rhonchi/rales Abd: soft, nontender, +BS x4 Ext: no clubbing/cyanosis/edema Neuro: Alert, no focal deficits, moves all extremities, Skin: warm/dry Medical - PN: Obj Da - Labs CBC & Chem 7: 09/15/19 05:45 09/15/19 05:45 Labs: Abnormal Lab Results 09/15/19 09/15/19 09/14/19 05:45 05:45 07:31 RBC 3.22 L Hgb 9.7 L Hct 29.4 L Gran % 81.7 H Lymph % (Auto) 9.8 L Lymph # (Auto) 0.55 L Seg Neutrophils % Lymphocytes % ESR Carbon Dioxide Creatinine 1.2 H Glucose 135 H Total Protein 5.6 L Urine Protein 100 A Urine Urobilinogen 2.0 A Hyaline Casts 3 H 09/14/19 09/14/19 05:05 05:05 RBC Hgb Hct 33.3 L Gran % Lymph % (Auto) Lymph # (Auto) Seg Neutrophils % 82 H Lymphocytes % 10 L ESR 29 H Carbon Dioxide 21 L Creatinine Glucose 169 H Total Protein Urine Protein Urine Urobilinogen Hyaline Casts Meds: Medications Acetaminophen (Tylenol) 650 mg PO Q6HP PRN; Protocol PRN Reason: Per Pain Protocol/Fever > 101 Apixaban (Eliquis) 2.5 mg PO BID [facility] Atorvastatin Calcium (Lipitor) 10 mg PO HS [facility] Last Admin: 09/15/19 00:28 Dose: 10 mg Documented by: Diltiazem HCl (Cardizem) 30 mg PO Q8 [facility] Last Admin: 09/15/19 05:37 Dose: 30 mg Documented by: Docusate Sodium (Colace) 100 mg PO BID [facility] Last Admin: 09/15/19 00:29 Dose: 100 mg Documented by: Famotidine (Pepcid) 20 mg PO BID [facility] Last Admin: 09/15/19 00:29 Dose: 20 mg Documented by: Hydralazine HCl (Apresoline) 10 mg PO BID [facility] Last Admin: 09/15/19 01:01 Dose: Not Given Documented by: Hydralazine HCl (Apresoline) 10 mg IV Q4-6HP PRN PRN Reason: Hypertension Lactated Ringer's (Lactated Ringers) 1,000 mls @ 125 mls/hr IV .Q8H [facility] Last Admin: 09/15/19 04:53 Dose: 125 mls/hr Documented by: Acetaminophen (Ofirmev) 1,000 mg in 100 mls @ 200 mls/hr IV Q8H [facility]; Protocol Last Infusion: 09/15/19 04:53 Dose: Infused Documented by: Lisinopril (Zestril) 10 mg PO DAILY [facility] Magnesium Hydroxide (Milk Of Magnesia) 30 ml PO DAILYP PRN PRN Reason: Constipation Methocarbamol (Robaxin) 750 mg IV Q6HP PRN PRN Reason: Muscle Spasm Metoprolol Succinate (Toprol Xl) 100 mg PO BID [facility] Last Admin: 09/15/19 01:05 Dose: Not Given Documented by: Morphine Sulfate (Morphine) 4 mg IV Q4HP PRN; Protocol PRN Reason: Per Pain Protocol Multivitamins/Minerals (Ocuvite) 1 tab PO DAILY [facility] Omeprazole (Prilosec) 20 mg PO ACB [facility] Ondansetron HCl (Zofran) 4 mg IV Q6HP PRN PRN Reason: Nausea And Vomiting Oxycodone HCl (Roxicodone) 5 mg PO Q4HP PRN; Protocol PRN Reason: Per Pain Protocol Senna (Senokot) 2 tab PO HS [facility] Last Admin: 09/15/19 00:28 Dose: 2 tab Documented by: Sodium Chloride (Saline Flush) 10 ml IV Q8 [facility] Last Admin: 09/15/19 07:10 Dose: Not Given Documented by: Throat Lozenges (Cepacol) 1 lozenge PO PRN PRN PRN Reason: Sore Throat Vancomycin HCl (Vancomycin) 1 gm TOPICAL ONCE [facility]; Protocol Last Admin: 09/14/19 19:43 Dose: 1 gm Documented by: Vitamin D (Vitamin D3) 1,000 unit PO DAILY [facility] Medical - PN: A/P - Time Spent With Patient Total time spent is greater than 50% in coordination of care (as documented) at patient's floor/unit and/or counseling patient: - Narrative A/P Narrative: Assessment: *Right Hip Fx: s/p ORIF (09/14) *AFib: only on ASA as has refused anticoagulation due to cost *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 Ayala for Ortho -echo pending -cont home hydralazine/BB/ACEI -pt/ot - -ppx: post-op per Ortho (apixaban)/pepcid DNR Medical - PN: Qual - Stroke Symptom Onset Unknown: No - VTE Deep Vein Thrombosis/Pulmonary Embolism Present on Admission: No
[2019-09-15] MEDS: OMEPRAZOLE 20 MG CAPSULE PO SCH (07:54)
[2019-09-15] MEDS: VITAMIN D3 1,000 UNIT TABLET PO SCH (08:31)
[2019-09-15] MEDS: VIT A,C & E/LUTEIN/MINERALS TABLET PO SCH (08:32)
[2019-09-15] MEDS: LISINOPRIL 10 MG TABLET PO SCH (08:32)
--- NOTE | 2019-09-15 11:01 | Operative Note ---
DATE OF OPERATION: 09/14/2019 PREOPERATIVE DIAGNOSIS: Right displaced femoral neck fracture. POSTOPERATIVE DIAGNOSIS: Right displaced femoral neck fracture. PROCEDURE PERFORMED: Right cemented hip hemiarthroplasty. SURGEON: Brain Ayala M.D. CONSUMER SAFETY INSPECTOR: Sergio Wen PA-C. This provider's expertise and technical skill were required throughout the case. The PA assisted with preoperative coordination, intraoperative retraction, wound closure, dressing and splint application, as well as postoperative documentation and care coordination. ANESTHESIA: General anesthesia. IV FLUIDS: 1500 lactated ringer. ESTIMATED BLOOD LOSS: 200 mL IV ANTIBIOTICS: 2 grams Ancef. IMPLANTS: Regular cemented size 3 stem from [employer] with a 46 mm head ball, -3 insert, One 1.7 cable. PATHOLOGY/LAB: None. INTRAOPERATIVE COMPLICATIONS: None. INDICATIONS: The patient is an 88-year-old female who fell yesterday evening resulting in a right hip fracture. She was subsequently brought to the ER at [facility], evaluated and found to have a displaced femoral neck fracture. We discussed treatment options including operative and nonoperative, and they wish to proceed with surgery. Discussed operative fixation to be cannulated screws versus a hip hemiarthroplasty. I think she has a high risk of AVN and failure of union with the cannulated screws given the displaced nature of the fracture and thus recommended a unique-hip arthroplasty. She did have some hip pain prior to that over the lateral aspect and did walk with uneven pelvis per friends which may be due to scoliosis. She has minimal underlying arthritic changes on her plain radiographs. After thorough discussion, they wished to proceed with surgery. DESCRIPTION OF PROCEDURE: The patient was met in the preoperative holding area. The site was verified and marked with the patient's input. She was subsequently taken back to the operating room where she underwent successful anesthesia via LMA. She was placed in the lateral decubitus position with left side down and her arm cutout for her down arm. Posts were placed anterior and posterior pubic symphysis to secure the pelvis in an upright position. Pillows were utilized to pad her bilateral upper extremities and secured to the table. The right lower extremity was then prepped and draped in the usual sterile fashion with ChloraPrep. Surgical timeout was performed to verify patient's identity and correct procedure being performed, correct extremity being operated on, and everybody was in agreement. I created approximately a 12 cm incision curvilinear posteriorly over the greater trochanter. Skin was sharply incised. Hemostasis was obtained down to the tensor fascia moises muscle as well as IT band distally with the electrocautery device. This was incised sharply to expose the trochanteric bursa which was excised of bursitis as well as tendinopathy and some tears of her hip abductors. A self-retaining retractor was placed. The leg was internally rotated. Next, the short external rotators were elevated off the capsule and tagged the piriformis. The capsulotomy was made along the femoral neck up to the acetabular rim. Dissection was taken down to the lesser trochanter as well. I created our femoral neck cut approximately 15 mm proximal to this angled into the crutch of the greater trochanter. The femoral head was removed and sized and all bony fragments were removed from the hip itself. I did use IrriSept throughout the case to irrigate. At this point I also noted that there was a defect along the medial calcar approximately 5 to 6 mm in width and likely occurred when making a femoral neck cut, or sequela from the fracture itself-I did not directly see when this occurred. At this point, the card boxer was utilized after exposing the femoral neck with a femoral neck elevator. A canal finder and subsequently lateralized, used to to localize the canal. It was broached up to a size 3 with good fit. I was happy with the overall stability of this size and adequacy. I did place a cable around the femoral neck just proximal to the lesser trochanter. A -3 head construct was placed and the hip was reduced. It appeared to be a bit long when reduced. It was stable. I did dislocate the hip again and placed the broach slightly deeper and calcar reamed flush with the stem. At this point, I irrigated the wound and the acetabulum again. The canal was prepped via cement restrictor being placed, pulse lavaged, brushed and suction device placed in the canal while cement was being mixed. The stem was cemented into place, matching the version of the posterior cortex of the femoral neck. It was held in place until this was hardened. The femoral head was impacted with a -3 insert and reduced, and was stable again through range of motion at 90 degrees hip flexion, internal rotation approximately 60 degrees, as well as the 30-30 sideline position. I was happy with overall length the construct stability. Again, the wound was copiously irrigated along with IrriSept and pulse lavage. The posterior capsule was closed with Ethibond sutures. The tensor fascia moises muscle was closed with interrupted 0 Vicryl as well as a running Vicryl across the muscle portion and distally with Stratafix. Once this was complete, the wound was again irrigated. 1 gram vancomycin powder was placed into the wound. The deep layers were closed with 2-0 Vicryl, subcutaneous tissue with a 3-0 Vicryl and skin with panda and then dry dressings included Xeroform, fluffs, and Medipore tape and a hip abduction pillow. The patient awoke from anesthesia and transferred PACU in stable condition. Postoperatively, the patient will be readmitted back to the floor for postop recovery and subsequently, likely transition to a rehab facility once stable. DLW:colin Job ID: [id number] Doc ID: [id number] Brian CARTER
[2019-09-15] MEDS: APIXABAN 5 MG TABLET PO SCH (20:51)
[2019-09-16] MEDS: ACETAMINOPHEN 1,000 MG/100 ML BOTTLE IV SCH (03:32)
[2019-09-16] MEDS: oxyCODONE HCL 5 MG TABLET PO PRN ×2 (03:51→15:44)
[2019-09-16] MEDS: 0.9 % SODIUM CHLORIDE 10 ML SYRINGE IV SCH ×3 (06:59→21:00)
[2019-09-16] MEDS: OMEPRAZOLE 20 MG CAPSULE PO SCH (06:59)
[2019-09-16] MEDS ORDERED: ACETAMINOPHEN 325 MG TABLET PO PRN (07:06)
--- NOTE | 2019-09-16 07:34 | Orthopedic Progress Note ---
Subjective Patient information: Note initiated : 09/16/19 at 7:31 am Service Date, if different from initiated Date: [] Patient: Macrina Braxton 88 y/o F admitted on 09/14/19 for fall ground level right hip pain. Chief Complaint: [] Principal diagnosis: right femoral neck fracture Interval history: No acute events overnight. Pain is controlled. Tolerating a diet. Denies chest pain/shortness of breath. Objective Vital signs: Vital Signs Temp Pulse Resp BP Pulse Ox 09/16/19 07:11 70 18 97 09/16/19 07:09 70 09/16/19 03:45 97.4 F 80 22 133/79 93 09/16/19 00:00 97.1 F 76 20 148/78 93 09/15/19 20:00 97.4 F 82 18 138/70 92 09/15/19 16:00 98.4 F 87 14 131/72 90 09/15/19 12:00 97.9 F 89 14 135/75 92 09/15/19 08:00 97.9 F 89 14 143/68 92 Intake and Output 09/15/19 09/16/19 09/16/19 21:59 05:59 13:59 Intake Total 700 250 Output Total 600 425 Balance 100 -175 Intake: IV 100 100 Oral 600 150 Output: Urine Catheter Amount 600 Urine/Stool Mix 425 Other: Stool Size Small Stool Color Brown Stool Consistency Loose Weight 145 lb 3.2 oz Intake & Output: Intake & Output 09/15/19 09/16/19 09/16/19 21:59 05:59 13:59 Intake Total 700 250 Output Total 600 425 Balance 100 -175 Weight 145 lb 3.2 oz Intake: IV 100 100 Oral 600 150 Output: Urine Catheter Amount 600 Urine/Stool Mix 425 Other: Stool Size Small Stool Color Brown Stool Consistency Loose Incision: Yes clean and dry Incision clean and dry: Yes Dressing: Yes clean, Yes dry, Yes intact Weight bearing status: full Neurological exam IM: Yes neurovascular intact - Labs CBC & BMP: 09/15/19 05:45 09/15/19 05:45 Labs: Orthopedic Labs 09/14/19 05:05 PT 13.0 INR 0.9 09/15/19 09/14/19 05:45 05:05 Hgb 9.7 L 11.4 Hct 29.4 L 33.3 L Assessment and Plan (1) Fracture of hip POD 2 s/p Right hip unique arthroplasty for displaced femoral neck fracture. -- PT/OT- WBAT with posterior hip precautions -- oral diet -- pain controlled with oral medications -- prophy: rich, scds, ambulation, IS -- Dispo: SNF tomorrow. Status: Acute Comment: Patient with right side subcapital fracture and intended hemiarthroplasty by Dr. Ayala
--- NOTE | 2019-09-16 07:49 | Internal Med Progress Note ---
Medical - PN: Subj Patient information: Note initiated : 09/16/19 at 7:47 am Service Date, if different from initiated Date: [] Patient: Macrina Braxton a 88 y/o F admitted on 09/14/19 for fall ground level right hip pain. Chief Complaint: [] Interval history: Ms. Braxton is a 88 year old F was taking bottles of water from the garage into the house climbing the 5 stairs when she lost strength in her right leg and fell on her side. She had immediate pain. She called her family but they did not respond till 2 in the morning. She was brought in and found to have right hip fracture. Patient has history of atrial fibrillation but is not on anticoagulation. She could not afford the Eliquis so just takes aspirin. She is not had a stroke before. Patient admits to dyspnea on exertion. It takes a few minutes to catch her breath again she lives independently and is accompanied by her [id number]-[id number]. Cvpzxq-[id number]-syy says patient has had decline in her physical ability in recent years. Patient has not had coronary artery disease or stroke. She denies chest pain at rest or with activity. 2/ Patient had ORIF yesterday of the right hip. Slept okay. No new complaints. No overnight events. 2/ No overnight events or new complaints. Patient slept well. Review of Systems: denies headache/fever/chills/nausea/vomiting/chest or abdominal pain/cough/dyspnea/diarrhea. Otherwise see above. - Constitutional Vitals: Vital Signs Temp Pulse Resp BP Pulse Ox 97.4 F 70 18 133/79 97 09/16/19 03:45 09/16/19 07:11 09/16/19 07:11 09/16/19 03:45 09/16/19 07:11 Period Temp Pulse Resp BP Sys/Trent Pulse Ox Last 24 Hr 97.1 F-98.4 F 70-89 14-22 131-148/68-79 90-97 Intake and Output 09/15/19 09/16/19 09/16/19 21:59 05:59 13:59 Intake Total 700 250 Output Total 600 425 Balance 100 -175 Weight 65.862 kg Intake & Output: Intake & Output 09/15/19 09/16/19 09/16/19 21:59 05:59 13:59 Intake Total 700 250 Output Total 600 425 Balance 100 -175 Weight 65.862 kg Intake: IV 100 100 Oral 600 150 Output: Urine Catheter Amount 600 Urine/Stool Mix 425 Other: Stool Size Small Stool Color Brown Stool Consistency Loose Exam: General: Alert, Awake, No acute Distress Eyes/N/T: EOMI, Head/Neck: neck supple, CV: irreg irreg, No murmurs Pulm: Clear b/l, no wheezing/rhonchi/rales Abd: soft, nontender, +BS x4 Ext: no clubbing/cyanosis/edema Neuro: Alert, no focal deficits, moves all extremities, Skin: warm/dry Medical - PN: Obj Da - Labs CBC & Chem 7: 09/15/19 05:45 09/15/19 05:45 Labs: Abnormal Lab Results 09/15/19 09/15/19 09/14/19 05:45 05:45 07:31 RBC 3.22 L Hgb 9.7 L Hct 29.4 L Gran % 81.7 H Lymph % (Auto) 9.8 L Lymph # (Auto) 0.55 L Seg Neutrophils % Lymphocytes % ESR Carbon Dioxide Creatinine 1.2 H Glucose 135 H Total Protein 5.6 L Urine Protein 100 A Urine Urobilinogen 2.0 A Hyaline Casts 3 H 09/14/19 09/14/19 05:05 05:05 RBC Hgb Hct 33.3 L Gran % Lymph % (Auto) Lymph # (Auto) Seg Neutrophils % 82 H Lymphocytes % 10 L ESR 29 H Carbon Dioxide 21 L Creatinine Glucose 169 H Total Protein Urine Protein Urine Urobilinogen Hyaline Casts Meds: Medications Acetaminophen (Tylenol) 650 mg PO Q6HP PRN; Protocol PRN Reason: Per Pain Protocol/Fever > 101 Apixaban (Eliquis) 2.5 mg PO BID [facility] Last Admin: 09/15/19 20:51 Dose: 2.5 mg Documented by: Atorvastatin Calcium (Lipitor) 10 mg PO [facility] Last Admin: 09/15/19 20:51 Dose: 10 mg Documented by: Docusate Sodium (Colace) 100 mg PO BID [facility] Last Admin: 09/15/19 20:51 Dose: Not Given Documented by: Hydralazine HCl (Apresoline) 10 mg PO BID [facility] Last Admin: 09/15/19 20:51 Dose: 10 mg Documented by: Hydralazine HCl (Apresoline) 10 mg IV Q4-6HP PRN PRN Reason: Hypertension Lisinopril (Zestril) 10 mg PO DAILY [facility] Last Admin: 09/15/19 08:32 Dose: 10 mg Documented by: Magnesium Hydroxide (Milk Of Magnesia) 30 ml PO DAILYP PRN PRN Reason: Constipation Methocarbamol (Robaxin) 750 mg IV Q6HP PRN PRN Reason: Muscle Spasm Metoprolol Succinate (Toprol Xl) 100 mg PO BID [facility] Last Admin: 09/15/19 20:51 Dose: 100 mg Documented by: Morphine Sulfate (Morphine) 4 mg IV Q4HP PRN; Protocol PRN Reason: Per Pain Protocol Multivitamins/Minerals (Ocuvite) 1 tab PO DAILY [facility] Last Admin: 09/15/19 08:32 Dose: 1 tab Documented by: Omeprazole (Prilosec) 20 mg PO ACB [facility] Last Admin: 09/16/19 06:59 Dose: 20 mg Documented by: Ondansetron HCl (Zofran) 4 mg IV Q6HP PRN PRN Reason: Nausea And Vomiting Oxycodone HCl (Roxicodone) 5 mg PO Q4HP PRN; Protocol PRN Reason: Per Pain Protocol Last Admin: 09/16/19 03:51 Dose: 5 mg Documented by: Carlos Manuel (Senokot) 2 tab PO HS [facility] Last Admin: 09/15/19 20:51 Dose: Not Given Documented by: Sodium Chloride (Saline Flush) 10 ml IV Q8 [facility] Last Admin: 09/16/19 06:59 Dose: 10 ml Documented by: Throat Lozenges (Cepacol) 1 lozenge PO PRN PRN PRN Reason: Sore Throat Vitamin D (Vitamin D3) 1,000 unit PO DAILY [facility] Last Admin: 09/15/19 08:31 Dose: 1,000 unit Documented by: Medical - PN: A/P - Time Spent With Patient Total time spent is greater than 50% in coordination of care (as documented) at patient's floor/unit and/or counseling patient: - Narrative A/P Narrative: Assessment: *Right Hip Fx: s/p ORIF (09/14) *AFib: only on ASA as has refused anticoagulation due to cost *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 Ayala for Ortho -cont home hydralazine/BB/ACEI -pt/ot -pending SNF placement -ppx: post-op per Ortho (apixaban)/pepcid DNR Medical - PN: Qual - Stroke Symptom Onset Unknown: No - VTE Deep Vein Thrombosis/Pulmonary Embolism Present on Admission: No
[2019-09-16] MEDS: METOPROLOL SUCCINATE 50 MG TAB.XL.24H PO SCH ×2 (08:30→20:59)
[2019-09-16] MEDS: APIXABAN 5 MG TABLET PO SCH ×2 (08:30→20:59)
[2019-09-16] MEDS: LISINOPRIL 10 MG TABLET PO SCH (08:30)
[2019-09-16] MEDS: hydrALAZINE 10 MG TABLET PO SCH ×2 (08:30→21:00)
[2019-09-16] MEDS: VITAMIN D3 1,000 UNIT TABLET PO SCH (08:30)
[2019-09-16] MEDS: DOCUSATE SODIUM 100 MG CAPSULE PO SCH ×2 (08:30→20:59)
[2019-09-16] MEDS: VIT A,C & E/LUTEIN/MINERALS TABLET PO SCH (08:30)
[2019-09-16 09:13] LABS: Hemoglobin 9.6 g/dL (11.2-15.7)
--- NOTE | 2019-09-16 11:09 | Discharge Summary ---
Medical - DS: Prov Patient information: Note initiated : 09/16/19 at 11:07 am Service Date, if different from initiated Date: [] Patient: Macrina Braxton 88 y/o F admitted on 09/14/19 for fall ground level right hip pain. Chief Complaint: [] Date of admission: 09/14/19 10:27 Discharge date: 09/17/19 Primary care physician: Khari Ballard Consults: 09/14/19 Consult to Physician [CONS] Stat Comment: Consulting Provider: Brian Ayala Reason For Exam: Physician to Consult 09/14/19 08:07 Consult to Physician [CONS] Stat Comment: Consulting Provider: Nithin Moeller Reason For Exam: Physician to Consult 09/15/19 16:05 Consult to Physician [CONS] Routine Comment: Consulting Provider: Yina Grimm Reason For Exam: Physician to Consult Medical - DS: Meds - Discharge Medications Prescriptions: Apixaban [Eliquis] 2.5 mg PO BID 27 Days #54 tab Transmission Status: Received by [id number] Apixaban [Eliquis] 2.5 mg PO BID #60 tab HYDROcodone/ACETAMINOPHEN [Zimmerman 5-325 Tablet] 1 each PO Q4-6HP PRN #60 tab PRN Reason: Pain Prescription Printed Methocarbamol [Robaxin] 500 mg PO Q6H PRN #60 tab PRN Reason: Spasms Transmission Status: Received by [facility] Active and Home Medications: Home Medications cholecalciferol (vitamin D3) 25 mcg (1,000 unit) capsule 1,000 unit PO QDAY cap 02/08/15 [History Confirmed 09/14/19 Last Taken Unknown] furosemide 40 mg tablet 40 mg PO QDAY #1 tab 10/30/17 [Rx Confirmed 09/14/19 Last Taken Unknown] metoprolol succinate 100 mg tablet,extended release 24 hr 100 mg PO BID #60 tab 01/30/18 [Rx Confirmed 09/14/19 Last Taken Unknown] hydralazine 10 mg tablet 10 mg PO BID tab 04/14/19 [History Confirmed 09/14/19 Last Taken Unknown] omeprazole 20 mg capsule,delayed release 20 mg PO QDAY #90 cap 08/13/19 [Rx Confirmed 09/14/19 Last Taken Unknown] enalapril maleate 10 mg tablet 10 mg PO QDAY 90 Days #90 tab 08/20/19 [Rx Confirmed 09/14/19 Last Taken Unknown] atorvastatin 10 mg tablet 10 mg PO QPM 90 Days #90 tab 08/30/19 [Rx Confirmed 09/14/19 Last Taken Unknown] Aspirin [Adult Low Dose Aspirin EC] 81 mg PO DAILY 09/14/19 [History Confirmed 0 09/14/19 Last Taken Unknown] Vit A,C & E/Lutein/Minerals [Ocuvite] 1 tab PO DAILY 09/14/19 [History Confirmed 09/14/19 Last Taken Unknown] Medical - DS: Hosp Hospital Course: Ms. Braxton is a 88 year old F was taking bottles of water from the garage into the house climbing the 5 stairs when she lost strength in her right leg and fell on her side. She had immediate pain. She called her family but they did not respond till 2 in the morning. She was brought in and found to have right hip fracture. Patient has history of atrial fibrillation but is not on anticoagulation. She could not afford the Eliquis so just takes aspirin. She is not had a stroke before. Patient admits to dyspnea on exertion. It takes a few minutes to catch her breath again she lives independently and is accompanied by her [id number]. Rjbzdf-[id number] says patient has had decline in her physical ability in recent years. Patient has not had coronary artery disease or stroke. She denies chest pain at rest or with activity. 09/15 Patient had ORIF yesterday of the right hip. Slept okay. No new complaints. No overnight events. 09/16 No overnight events or new complaints. Patient slept well. 09/17 Patient doing well. Feeling well. Stable for discharge. Discharge diagnosis: Right hip fracture status post ground-level fall Secondary discharge diagnosis: Atrial fibrillation CML anemia chronic hypertension chronic kidney disease - Time Spent with Patient Total time spent providing and/or coordinating discharge services: Greater than 30 minutes Medical - DS: Exam - Constitutional Vitals: Vital Signs Temp Pulse Resp BP Pulse Ox 09/16/19 08:00 96.7 F L 78 22 141/74 97 09/16/19 07:11 70 18 97 09/16/19 07:09 70 09/16/19 03:45 97.4 F 80 22 133/79 93 09/16/19 00:00 97.1 F 76 20 148/78 93 09/15/19 20:00 97.4 F 82 18 138/70 92 09/15/19 16:00 98.4 F 87 14 131/72 90 09/15/19 12:00 97.9 F 89 14 135/75 92 Intake and Output 09/15/19 09/16/19 09/16/19 21:59 05:59 13:59 Intake Total 700 250 Output Total 600 425 Balance 100 -175 Intake: IV 100 100 Oral 600 150 Output: Urine Catheter Amount 600 Urine/Stool Mix 425 Other: Stool Size Small Stool Color Brown Stool Consistency Loose Weight 65.862 kg Medical - DS: Data Labs on day of discharge: Labs from last 24 hours 09/16/19 08:25 Hgb 9.6 L Hct 29.0 L Medical - DS: A/P - Patient/Caregiver Discharge Instructions Activity: as per physical therapy Diet: Regular Diet Additional Instructions: Discharge Instructions: Weight bearing as tolerated. Wear comfortable clothing for physical therapy. You have the silver dressing, leave in place for 7-14 days then remove. If dressing becomes soiled (turns black), remove and use gauze 4x4 dressing and antimicrobial silver ointment ([id number]) and change daily. You may shower with dressing on, pat dry after shower. You may start showering on post op day #2. To avoid constipation while taking any narcotic pain medication, take an over the counter stool softener/laxative. Use ice packs as directed, on for 20 minutes at a time, throughout the day. Ice and elevation will help with pain and swelling. If you have any questions or concerns call your orthopedic surgeon before going to the emergency room. [facility] has a tobacco conditioner physician 24 hours per day/7 days per week and can be reached at [phone]. Call for fevers above 100.5 or pain not controlled by medication. Your prescriptions are with your discharge information. Some medications were electronically transmitted to your pharmacy of choice. Prescriptions: Apixaban [Eliquis] 2.5 mg PO BID 27 Days #54 tab Transmission Status: Received by [facility] Apixaban [Eliquis] 2.5 mg PO BID #60 tab HYDROcodone/ACETAMINOPHEN [Zimmerman 5-325 Tablet] 1 each PO Q4-6HP PRN #60 tab PRN Reason: Pain Prescription Printed Methocarbamol [Robaxin] 500 mg PO Q6H PRN #60 tab PRN Reason: Spasms Transmission Status: Received by [facility] Other Amb Orders: Physical Therapy at Discharge - General Location: None Selected - Follow up Plan Follow up with: Khari Ballard PA-C [Primary Care Provider] - (please call and schedule a hospital follow up.) Brian Ayala MD [Physician] - (please call and schedule a follow up to be seen 10-14 days post surgery.) Disposition: Xfer SNF Care Plan Goals: This discharge packet is provided to you to help keep you informed about your care. We want to ensure you get everything you need when you go home. You will also be receiving a call from us in a few days to follow up with you and see how you are doing since your discharge. This gives us a chance to listen to any concerns you maybe experiencing since you were discharged or any additional needs you may have, as well as providing us feedback on your care experience. We strive to always provide excellent care and thank you for your feedback and for choosing [facility]. Prognosis: Good Rehab Potential: Fair I certify that the patient requires SNF services: Yes Overall status at discharge: patient is progressing back to baseline Medical - DS: Qual - VTE Deep Vein Thrombosis/Pulmonary Embolism Present on Admission: No
[2019-09-16] MEDS: SENNOSIDES 1 TABLET PO SCH (21:00)
[2019-09-16] MEDS: ATORVASTATIN 20 MG TABLET PO SCH (21:09)
[2019-09-17] MEDS: 0.9 % SODIUM CHLORIDE 10 ML SYRINGE IV SCH (06:04)
--- NOTE | 2019-09-17 06:43 | Orthopedic Progress Note ---
Subjective Patient information: Note initiated : 09/17/19 at 6:41 am Service Date, if different from initiated Date: [] Patient: Macrina Braxton 88 y/o F admitted on 09/14/19 for fall ground level right hip pain. Chief Complaint:R hip pain Principal diagnosis: right femoral neck fracture Interval history: Pt states her pain is managed. Denies CP, SOB, N/V, abd pain, fevers/chills. Pertinent ROS: negative except per hpi Objective Vital signs: Vital Signs Temp Pulse Resp BP Pulse Ox 09/17/19 03:40 97.6 F 88 20 143/80 93 09/16/19 22:53 98.1 F 86 14 152/79 90 09/16/19 18:32 98.0 F 90 16 134/76 92 09/16/19 16:00 98.7 F 86 22 160/66 97 09/16/19 12:05 72 09/16/19 12:00 97.0 F 75 22 135/69 95 09/16/19 08:00 96.7 F L 78 22 141/74 97 09/16/19 07:11 70 18 97 09/16/19 07:09 70 Intake and Output 09/16/19 09/17/19 09/17/19 21:59 05:59 13:59 Intake Total 525 Output Total 450 325 300 Balance -450 200 -300 Intake: Oral 525 Output: Void Amount 450 325 300 Other: Urine Appearance Clear Clear Clear Urine Color Bright Yellow Bright Yellow Bright Yellow Urine Odor Normal Weight 156 lb 12.8 oz Intake & Output: Intake & Output 09/16/19 09/17/19 09/17/19 21:59 05:59 13:59 Intake Total 525 Output Total 450 325 300 Balance -450 200 -300 Weight 156 lb 12.8 oz Intake: Oral 525 Output: Void Amount 450 325 300 Other: Urine Appearance Clear Clear Clear Urine Color Bright Yellow Bright Yellow Bright Yellow Urine Odor Normal Incision: Yes clean and dry Dressing: Yes clean, Yes dry, Yes intact Weight bearing status: as tolerated Neurological exam IM: Yes alert, Yes oriented X3, Yes neurovascular intact Extremities exam IM: No calf tenderness, Yes normal inspection, No Gary's sign, Yes Foot pink and warm, Yes neurovascular intact - Labs CBC & BMP: 09/16/19 08:25 09/15/19 05:45 Labs: Orthopedic Labs 09/14/19 05:05 PT 13.0 INR 0.9 09/16/19 09/15/19 09/14/19 08:25 05:45 05:05 Hgb 9.6 L 9.7 L 11.4 Hct 29.0 L 29.4 L 33.3 L Assessment and Plan - Narrative A/P Narrative: Pt is an 88 yo female POD 3 s/p Right hip unique arthroplasty for displaced femoral neck fracture. -- followup with ortho in 2 weeks for wound check/staple removal. -- no soaking the incision in tub, bath. No ointments, lotions, creams to incision. Keep incision clean and dry. -- PT/OT- WBAT with posterior hip precautions until the 6 week espinoza. -- oral diet -- pain controlled with oral medications -- prophy: rich, scds, ambulation, IS -- Dispo: SNF today.
[2019-09-17] MEDS: OMEPRAZOLE 20 MG CAPSULE PO SCH (07:12)
[2019-09-17] MEDS: LISINOPRIL 10 MG TABLET PO SCH (08:55)
[2019-09-17] MEDS: METOPROLOL SUCCINATE 50 MG TAB.XL.24H PO SCH (08:55)
[2019-09-17] MEDS: APIXABAN 5 MG TABLET PO SCH (08:55)
[2019-09-17] MEDS: hydrALAZINE 10 MG TABLET PO SCH (08:55)
[2019-09-17] MEDS: VITAMIN D3 1,000 UNIT TABLET PO SCH (08:56)
[2019-09-17] MEDS: VIT A,C & E/LUTEIN/MINERALS TABLET PO SCH (08:56)
[2019-09-17] MEDS: oxyCODONE HCL 5 MG TABLET PO PRN (08:56)
[2019-09-17] MEDS: DOCUSATE SODIUM 100 MG CAPSULE PO SCH (08:57)
== END 2019-09-17 10:35 | DRG 470 ==
LOC: ED 04:15 → MEDSUR 10:27
PROVIDERS: ADMIT Internal Medicine; ATTEND Internal Medicine